=== PATIENT | female | born 1980 | race Two or more races ===

== ENCOUNTER 2023-03-04 17:27 | Emergency (ER) | payer BC ==
[~2023-03-04] VITALS: Ht 157.5 cm; Wt 86.2 kg
[2023-03-04 18:24] VITALS: BP 148/99; TEMP 98.2
[2023-03-04] MEDS ORDERED: MELO-107 PO (18:43)
[2023-03-04] MEDS ORDERED: ACET-2605 PO (18:43)
[2023-03-04] MEDS ORDERED: GABA-532 PO (18:43)
[2023-03-04] MEDS ORDERED: METH-647 PO (18:43)
[2023-03-04] MEDS ORDERED: OXYC-133 PO (18:43)
[2023-03-04 19:02] VITALS: O2SAT 97
== END 2023-03-04 19:03 | disposition home or self-care (01) ==
LOC: ER 17:34
DX: G89.18 Other acute postprocedural pain (principal); M25.571 Pain in right ankle and joints of right foot